=== PATIENT | male | born 2000 | race Caucasian/White ===

== ENCOUNTER 2024-07-26 18:28 | Emergency (ER) | payer SELFPAY ==
[~2024-07-26] VITALS: Ht 175.3 cm; Wt 76.0 kg
[2024-07-26] MEDS: IPRATROPIUM/ALBUTEROL 0.5-3(2.5)MG/3ML NEB HHN ONE (20:40)
[2024-07-26 20:46] VITALS: PULSE 74; RESP 22; O2SAT 97
[2024-07-26] MEDS ORDERED: ALBU18HF2 IH (21:04)
[2024-07-26] MEDS ORDERED: METH4TAB95 MT (21:04)
[2024-07-26 21:15] VITALS: BP 129/77; PULSE 68; RESP 17; TEMP 36.89184; O2SAT 100
== END 2024-07-26 21:16 | disposition home or self-care (01) ==
LOC: ER 18:28
DX: R06.02 Shortness of breath (principal); R05.9 Cough, unspecified
CPT/HCPCS: 71045; 94640; 99283; Z7610 ×3